=== PATIENT | female | born 1945 | race Caucasian/White ===

== ENCOUNTER 2018-04-03 01:54 | Inpatient (IN) | payer MEDICARE, OTHER ==
[2018-04-02 14:00] LABS: INR 0.93
[2018-04-03] VITALS (15 sets, daily range): BP systolic 93–175; BP diastolic 60–80
[~2018-04-03] VITALS: Ht 152.4 cm; Wt 68.9 kg
[~2018-04-03 01:54] MED LIST: ALBU8.5H IH; ASPI-757 PO; CELE-1 PO; FLUT10SP; HYDR-318 PO; LEVO50TA86 PO; LORTAB PO; METO25TA93 PO; METO50TA19 PO; MONT10TA4 PO; OXYC-823 PO; RIV10 PO
--- NOTE | 2018-04-03 07:07 | LEVENE H&P ---
DATE OF ADMISSION: April 03, 2018 IDENTIFICATION/CHIEF COMPLAINT The patient is a 72-year-old woman with a chief complaint of right knee pain. HISTORY OF PRESENT ILLNESS The patient has a longstanding history of knee arthritis, progressively painful and debilitating, refractory to conservative care. Surgery is indicated to relieve pain after failure of nonoperative measures. PAST MEDICAL HISTORY 1. Known for hypertension controlled on medications. 2. Hypothyroidism. 3. Reactive airway disease which is rarely active. PAST SURGICAL HISTORY 1. Multiple knee operations. 2. Contralateral knee replacement. 3. Eye surgery. 4. Hip replacement. ALLERGIES NEOSPORIN CURRENT MEDICATIONS 1. Levothyroxine 50 mcg p.o. q day. 2. Metoprolol 50 mg p.o. q day. 3. Montelukast 10 mg p.o. q day. 4. ProAir inhaler p.r.n. 5. Fluticasone once per day each nostril. FAMILY HISTORY Non-contributory. SOCIAL HISTORY Notable for smoking a pack a day for 35 years, quitting in the year 1999. She drinks alcohol about one alcoholic beverage per week socially. She denies abuse. REVIEW OF SYSTEMS Negative. PHYSICAL EXAMINATION GENERAL: This is healthy female. HEENT: Normocephalic, atraumatic. Extraocular muscles intact. NECK: Supple, non-tender. LUNGS: Clear to auscultation bilaterally. HEART: Regular rate and rhythm. ABDOMEN: Benign. BACK: Non-tender without deformity. ORTHOPEDIC EXAMINATION The right knee has an effusion present and crepitus is noted. Extensor function is intact. Motion is relatively supple. Knee is grossly stable. Calf nontender. Neurovascular function intact. RADIOGRAPHS Reviewed demonstrating endstage knee arthritis. ASSESSMENT Right knee endstage degenerative joint disease, progressively painful and debilitating, refractory to conservative care. PLAN Per patient request we are going to proceed with right total knee arthroplasty. The nature of the procedure, the risks, benefits, the anticipated rehabilitative course were reviewed. Risks include but are not limited to , major medical or anesthetic complication, infection, neurovascular injury, stiffness, scarring, implant loosening, migration or failure, blood transfusion, re-tear, progressive arthritis, persistent or recurrent pain or symptoms, need for additional surgery and other unforeseen. She understands and wishes to proceed. A signed permit is placed in the chart. No guarantees are given or implied. [facility]
[2018-04-03] MEDS ORDERED: ONDANSETRON 4 MG/2 ML VIAL ONE (08:00)
[2018-04-03] MEDS ORDERED: PROPOFOL EMUL(*) 10MG/ML 20 ML 20 ML ONE (08:00)
[2018-04-03] MEDS ORDERED: DEXAMETHASONE SOD 4 MG/ML VIAL ONE (08:00)
[2018-04-03] MEDS ORDERED: LIDOCAINE MPF 1% 5 ML VIAL ONE (08:00)
[2018-04-03] MEDS ORDERED: METOCLOPRAMIDE 10 MG/2 ML SDV ONE (08:00)
[2018-04-03] MEDS ORDERED: fentaNYL CITR 100 MCG/2 ML AMP ONE (08:00)
[2018-04-03] MEDS ORDERED: NORMOSOL R SOLN(*) 1000 ML BAG 1,000 ML IV PRN ×2 (08:45→12:00)
[2018-04-03] MEDS ORDERED: ceFAZolin(*) 1 GM VIAL 1 GM in NS(*) 0.9% 100 ML ADDVANT BAG 100 ML IVPB ONE (08:45)
[2018-04-03] MEDS ORDERED: ACETAMINOPHEN 500 MG TAB PO ONE (08:45)
[2018-04-03] MEDS ORDERED: LIDOCAINE/SOD BICARB 8.4% SYR ID ONE (08:45)
[2018-04-03] MEDS ORDERED: cloNIDine EPIDUR INJ 100MCG/ML 40 MCG, ROPIVACAINE 0.5% 20 ML VIAL 25 ML, EPINEPHrine H... INJ ONE (08:45)
[2018-04-03] MEDS ORDERED: CELECOXIB 200 MG CAP PO ONE (08:45)
[2018-04-03] MEDS ORDERED: FAMOTIDINE 20 MG TAB PO ONE (08:45)
[2018-04-03] MEDS ORDERED: MIDAZOLAM 2 MG/2 ML VIAL IVP PRN (08:45)
[2018-04-03] MEDS ORDERED: PREGABALIN 75 MG CAPSULE PO ONE (08:45)
[2018-04-03] MEDS ORDERED: TRANEXAMIC AC 1000 MG/10ML SDV 1,000 MG in DEXTROSE 5% 50 ML BAG 50 ML IV ONE (08:45)
[2018-04-03] MEDS ORDERED: BENZOCAINE/MENTHOL 1 EACH LOZG PO PRN (12:00)
[2018-04-03] MEDS ORDERED: diphenhydrAMINE 25 MG CAP PO PRN (12:00)
[2018-04-03] MEDS ORDERED: ACETAMINOPHEN 325 MG TAB PO PRN (12:00)
[2018-04-03] MEDS ORDERED: PROMETHAZINE 25 MG/ML 1 ML AMP IVP PRN (12:00)
[2018-04-03] MEDS ORDERED: MAGNESIUM HYDROXIDE* 30ML UDCP PO PRN (12:00)
[2018-04-03] MEDS ORDERED: diphenhydrAMINE 50 MG/ML VIAL IVP PRN (12:00)
[2018-04-03] MEDS ORDERED: FLUSH 10 ML SYR IVP PRN (12:00)
[2018-04-03] MEDS ORDERED: DIAZEPAM 5 MG TAB PO PRN (12:00)
[2018-04-03] MEDS ORDERED: BISACODYL 10 MG SUPP PR PRN (12:00)
[2018-04-03] MEDS ORDERED: ZOLPIDEM TARTRATE 5 MG TAB PO PRN (12:00)
[2018-04-03] MEDS: APAP/HYDROCODONE 325/7.5 TAB PO PRN ×3 (13:53→19:26)
--- NOTE | 2018-04-03 13:56 | RADIOLOGY IMAGING REPORT ---
FACILITY: [facility] PATIENT NAME: Juliana Cisneros : 1945 MR: [id number] V: [id number] EXAM DATE: ORDERING PHYSICIAN: SON SANDS TECHNOLOGIST: Location: [facility] Patient: Juliana Cisneros : 1945 Visit/Account:[id number] Date of Sevice: 04/03/2018 Exam type: KNEE LIMITED RIGHT History: S/P R TKA Comparison: None. Findings: AP and crosstable lateral views the right knee demonstrate a right knee arthroplasty in good anatomic alignment. Soft tissue gas and skin rochelle project over the anterior aspect of this postoperative knee IMPRESSION: 1. Right knee arthroplasty appears in good anatomic alignment Report Dictated By: Velia Stinson MD at 04/03/2018 1:48 PM Report E-Signed By: Velia Stinson MD at 04/03/2018 1:52 PM WSN:[email or web address]
[2018-04-03] MEDS ORDERED: FLUTICASONE PROP 0.05% 16 GM PRN (14:15)
[2018-04-03] MEDS ORDERED: ALBUTEROL 8 GM INHALER INH PRN (14:15)
--- NOTE | 2018-04-03 14:17 | Hospitalist Consultation ---
History of Present Illness Requesting Physician Dr. Almonte Reason for Consult Medical Management Chief Complaint s/p right total knee replacement History of Present Illness She was admitted s/p right total knee replacement. It is reported the surgery went well and without complication. History Problems: (1) HTN (hypertension) Status: Chronic (2) Asthma Status: Chronic (3) Hypothyroidism Status: Chronic Home Meds Reported Medications Levothyroxine Sodium (LEVOTHYROXINE SODIUM) 50 Mcg Tablet, 50 MCG PO HS, TAB 09/13/16 Metoprolol Succinate (METOPROLOL SUCCINATE) 50 Mg Tab.er.24h, 1 TAB PO HS, TAB 09/13/16 Montelukast Sodium (MONTELUKAST SODIUM) 10 Mg Tablet, 1 TAB PO HS TAKE ONE TABLET BY MOUTH AT LEAST TWO HOURS PIOR TO EXERCISE 09/19/13 Albuterol Sulfate 90 Mcg/Act (PROAIR HFA 90 MCG/ACT) 8.5 Gm Hfa.aer.ad, 1-2 PUFF IH PRN 09/19/13 Fluticasone Furoate (VERAMYST) 10 Gm [place], 1 SPRAY NA QDAY PRN for CONGESTION, SPRAY 09/19/13 Discontinued Reported Medications Hydrocodone/Acetaminophen (Lortab 7.5-325 mg Tablet) 1 Each Tablet, 1-2 TAB PO Q4-6H PRN for PAIN, #80 09/22/16 Celecoxib (CELEBREX) 200 Mg Capsule, 200 MG PO BIDBS, #60 CAPSULE 09/22/16 Discontinued Scripts Aspirin (ASPIRIN) 325 Mg Tablet, 325 MG PO DAILY PRN for vte for 30 Days, TAB 0 Refills Prov:DANIELLE ALBERT MD FACP 09/22/16 Allergies: Coded Allergies: pneumococcal vaccine (Verified Allergy, Mild, increase in blood pressure, fever, chills, 09/13/16) bacitracin (Verified Allergy, Unknown, rash, swelling, 09/13/16) neomycin (Verified Allergy, Unknown, rash, swelling, 09/13/16) polymyxin B (Verified Allergy, Unknown, rash, swelling, 09/13/16) Patient History: FH: emphysema FATHER, FH: lung cancer MOTHER, Hx Smoking: Yes (1 PPD X 40 YRS. QUIT 1999) Smoking Status: Former Smoker Caffeine Intake: Coffee, Tea, Soda Caffeine/Cups Per Day: 2-4 Hx Alcohol Use: Yes Hx Substance Use Disorder: No Social Drug Use: Never Review of Systems All Systems Reviewed/Normal: Yes, Except as Noted Exam Vital Signs Vital Signs Date Time Temp Pulse Resp B/P (MAP) Pulse Ox O2 Delivery O2 Flow Rate FiO2 04/03/18 13:45 96.1 62 139/67 (91) 94 Nasal Cannula 2.0 04/03/18 13:00 20 General Appearance: Alert, Awake, No Acute Distress, Afebrile Neuro: No Gross deficits Cardiovascular: Regular Rate and Rhythm Respiratory: No Respiratory Distress, Clear to Auscultation Psych: Alert & Oriented X3, Appropriate Mood & Affect Assessment and Plan Problems: (1) Status post total right knee replacement Status: Acute Assessment & Plan: Followed by Dr. Almonte. She will be placed on Aspirin for VTE prophylaxis. She has no history of DVT or PE. (2) HTN (hypertension) Status: Chronic Assessment & Plan: She is on chronic treatment with Metoprolol. This has been restarted with hold parameters. (3) Hypothyroidism Status: Chronic Assessment & Plan: She is on chronic treatment with Levothyroxine. (4) Asthma Status: Chronic Assessment & Plan: She does use 1.5 L at night. Venous Thromboembolism Antithrombotics Is Pt On Any Antithrombotics?: No Exam Sepsis Risk: No Definite Risk Problem Qualifiers (1) HTN (hypertension): Hypertension type: essential hypertension Qualified Codes: I10 - Essential (primary) hypertension OLAMIDE THURMANP Apr 03, 2018 14:17
--- NOTE | 2018-04-03 16:15 | OPERATIVE REPORT 1 ---
EVENT DATE: April 03, 2018 SURGEON: Yohan Almonte MD ANESTHESIOLOGIST: Melecio Barajas MD ANESTHESIA: General plus spinal. MACHINE REPAIR PERSON: SUZY Looney PREOPERATIVE DIAGNOSIS Right knee degenerative joint disease. POSTOPERATIVE DIAGNOSIS Right knee degenerative joint disease. PROCEDURE PERFORMED Right total knee arthroplasty. ESTIMATED BLOOD LOSS Minimal. DRAINS None. SPECIMENS None. COMPLICATIONS None apparent. TOURNIQUET TIME 39 minutes IMPLANTS USED [employer] Triathlon knee system, a 3 right PS femur, a 3 standard tibial baseplate, a 31 mm universal, cemented, all-polyethylene patellar button, and a 13 mm PS tibial tray liner. Polyethylene is X3. INDICATIONS Juliana is a 72-year-old woman with progressive pain and disability related to end-stage knee arthritis. Surgery is indicated to relieve symptoms after failure of nonoperative measures. DESCRIPTION OF PROCEDURE Patient was taken to the operating room and placed supine on the operating table. Spinal block was administered by the anesthesiologist. General anesthesia was induced. Antibiotics and TXA were administered IV. Right lower extremity was prepped and draped in the usual sterile fashion for knee arthroplasty. Limb was exsanguinated with an Esmarch bandage. Tourniquet inflated to 250 mmHg. Midline longitudinal incision made, carried down through the skin and subcutaneous tissue to the extensor mechanism. Full-thickness flaps were developed far enough medially to allow medial parapatellar arthrotomy be performed. Patella was everted. Knee was brought into the flexed position. Fat pad, anterior horns of the menisci, and the cruciate ligaments are debrided. A subperiosteal medial released is initiated in a titrated fashion to balance the knee. A step drill is used to enter the distal femur. A 10-inch long alignment guide is used to engage the isthmus, cut set for 6 degrees of valgus relative to the anatomic axis. The 10 mm resection block is applied, pinned, and cuts made with an oscillating saw. AP sizing guide is applied to the distal femoral cut, positioned for 3 degrees of external rotation relative to the posterior condyles. The size 3 is optimal without risk of notching. The four-in-one cutting block is applied. Anterior, posterior, posterior chamfer, and anterior chamfer cuts are made respectively. PS block is applied and centered. Medial and lateral bone is removed from the box. Trial femur has nice [id number] fit. Attention is turned to tibial preparation. The extramedullary guide is applied, positioned for varus, valgus, posterior slope, and rotation. This is set to take 9 mm from the relatively intact lateral tibial plateau. It is dropped down a couple millimeters to ensure an adequate cut. Block is pinned. Extramedullary alignment check is made. Cuts made with an oscillating saw. After osteophyte removal, gaps are balanced and symmetric with no additional releases required. Size 3 tibial baseplate provides optimum bony coverage of the tibia without soft tissue overhang. This is inserted along with the trial femur and the trial liner. Knee is brought to extension. Patella is taken from the starting thickness of 23 mm to a residual of 14 with a patellar clamp and oscillating saw. The 31 provides optimum bony coverage without soft tissue overhang. Lug holes are drilled. Patella tracks nicely with the no-touch technique. Final tibial preparation consists of assuring appropriate rotational and translational positioning of the component. The boss is reamed. Fin is punched. Surfaces are lavaged. All components cemented in a single stage. When the methacrylate is fully polymerized, tourniquet is deflated, and hemostasis assured. Wound is copiously lavaged. All loose debris is removed. The 13 PS tibial tray liner fills up the gap ideally, allowing the knee to drop to full extension without hyperextension, providing optimal soft tissue tension and stability. The tray is lavaged and dried, and the liner is locked into the baseplate. Joint is reduced. Arthrotomy is closed in flexion with #2 Ethibond, subcutaneous tissue with 3-0 Vicryl, skin with surgical rochelle, Xeroform and 4 x 4's as a dry, sterile dressing, and compression wrap. The patient awakened from anesthesia and taken to the recovery room in stable condition having tolerated the procedure well. PLAN Plan is for standard TKA rehab protocol. [facility]
[2018-04-03] MEDS: CELECOXIB 200 MG CAP PO SCH (17:33)
[2018-04-03] MEDS: ceFAZolin(*) 1 GM VIAL 1 GM in NS(*) 0.9% 100 ML ADDVANT BAG 100 ML IVPB SCH (17:33)
[2018-04-03] MEDS: METOPROLOL SUCC XL 50 MG TABCR 50 MG TAB.ER.24H PO SCH (21:00)
[2018-04-03] MEDS: MONTELUKAST SODIUM 10 MG TAB PO SCH (21:37)
[2018-04-03] MEDS: LEVOTHYROXINE SOD 0.05 MG TAB PO SCH (21:37)
[2018-04-04] VITALS (7 sets, daily range): BP systolic 119–160; BP diastolic 56–79; Ht 152.4 cm; Wt 68.9 kg
[2018-04-04] MEDS: APAP/HYDROCODONE 325/7.5 TAB PO PRN ×5 (01:18→21:21)
[2018-04-04] MEDS: ceFAZolin(*) 1 GM VIAL 1 GM in NS(*) 0.9% 100 ML ADDVANT BAG 100 ML IVPB SCH ×2 (01:24→09:57)
[2018-04-04] MEDS: ASPIRIN 325 MG TAB PO SCH (08:34)
[2018-04-04] MEDS: CELECOXIB 200 MG CAP PO SCH ×2 (08:34→17:21)
--- NOTE | 2018-04-04 09:23 | Hospitalist Progress Note ---
Subjective Progress Notes Subjective She has no complaints this morning. She had no acute events overnight. Patient Complains of: Cardiovascular: No: Chest Pain Respiratory: No: Shortness of Breath Physical Exam Vital Signs Date Time Temp Pulse Resp B/P (MAP) Pulse Ox O2 Delivery O2 Flow Rate FiO2 04/04/18 07:45 97 Nasal Cannula 2.0 04/04/18 07:41 97.8 62 18 138/76 (96) Intake and Output 04/04/18 06:59 Intake Total 3717 ml Balance 3717 ml Intake Oral 1610 ml IV Total 2107 ml # Voids 3 General Appearance: Alert, Awake, No Acute Distress, Afebrile Neuro: No Gross deficits Cardiovascular: Regular Rate and Rhythm Respiratory: No Respiratory Distress, Clear to Auscultation Psych: Alert & Oriented X3, Appropriate Mood & Affect Assessment and Plan Problems: (1) Status post total right knee replacement Status: Acute Assessment & Plan: Followed by Dr. Almonte. She will be placed on Aspirin for VTE prophylaxis. She has no history of DVT or PE. (2) HTN (hypertension) Status: Chronic Assessment & Plan: She is on chronic treatment with Metoprolol. This has been restarted with hold parameters. (3) Hypothyroidism Status: Chronic Assessment & Plan: She is on chronic treatment with Levothyroxine. (4) Asthma Status: Chronic Assessment & Plan: She does use 1.5 L at night. Exam Sepsis Risk: No Definite Risk Problem Qualifiers (1) HTN (hypertension): Hypertension type: essential hypertension Qualified Codes: I10 - Essential (primary) hypertension OLAMIDE THURMAN Apr 04, 2018 09:23
[2018-04-04] MEDS ORDERED: KETOROLAC 15 MG/ML VIAL IVP ONE (14:40)
[2018-04-04] MEDS: MONTELUKAST SODIUM 10 MG TAB PO SCH (21:20)
[2018-04-04] MEDS: LEVOTHYROXINE SOD 0.05 MG TAB PO SCH (21:20)
[2018-04-04] MEDS: METOPROLOL SUCC XL 50 MG TABCR 50 MG TAB.ER.24H PO SCH (21:20)
[2018-04-05] VITALS (7 sets, daily range): BP systolic 104–150; BP diastolic 51–91
[2018-04-05] MEDS: APAP/HYDROCODONE 325/7.5 TAB PO PRN ×5 (01:24→20:38)
[2018-04-05] MEDS ORDERED: HYDR-4308 PO (07:38)
[2018-04-05] MEDS: CELECOXIB 200 MG CAP PO SCH ×2 (08:18→17:09)
[2018-04-05] MEDS: ASPIRIN 325 MG TAB PO SCH (08:18)
--- NOTE | 2018-04-05 09:59 | Hospitalist Progress Note ---
Subjective Progress Notes Subjective She has complaints of being tired this morning. She had no acute events overnight. Patient Complains of: Cardiovascular: No: Chest Pain Respiratory: No: Shortness of Breath Physical Exam Vital Signs Date Time Temp Pulse Resp B/P (MAP) Pulse Ox O2 Delivery O2 Flow Rate FiO2 04/05/18 07:09 92 Nasal Cannula 2.0 04/05/18 07:06 97.8 54 16 113/54 (73) Intake and Output 04/05/18 07:00 Intake Total 2176 ml Balance 2176 ml Intake Oral 2060 ml IV Total 116 ml # Voids 6 General Appearance: Alert, Awake, No Acute Distress, Afebrile Neuro: No Gross deficits Cardiovascular: Regular Rate and Rhythm Respiratory: No Respiratory Distress, Clear to Auscultation Psych: Alert & Oriented X3, Appropriate Mood & Affect Assessment and Plan Problems: (1) Status post total right knee replacement Status: Acute Assessment & Plan: Followed by Dr. Almonte. She will be placed on Aspirin for VTE prophylaxis. She has no history of DVT or PE. (2) HTN (hypertension) Status: Chronic Assessment & Plan: She is on chronic treatment with Metoprolol. This has been restarted with hold parameters. (3) Hypothyroidism Status: Chronic Assessment & Plan: She is on chronic treatment with Levothyroxine. (4) Asthma Status: Chronic Assessment & Plan: She does use 1.5 L at night. Exam Sepsis Risk: No Definite Risk Problem Qualifiers (1) HTN (hypertension): Hypertension type: essential hypertension Qualified Codes: I10 - Essential (primary) hypertension OLAMIDE THURMAN ACID PURIFIER Apr 05, 2018 09:59
[2018-04-05] MEDS: METOPROLOL SUCC XL 50 MG TABCR 50 MG TAB.ER.24H PO SCH (20:37)
[2018-04-05] MEDS: MONTELUKAST SODIUM 10 MG TAB PO SCH (20:37)
[2018-04-05] MEDS: LEVOTHYROXINE SOD 0.05 MG TAB PO SCH (20:38)
[2018-04-06 03:31] VITALS: BP 101/58
[2018-04-06] MEDS: APAP/HYDROCODONE 325/7.5 TAB PO PRN ×2 (03:45→09:25)
[2018-04-06] MEDS ORDERED: ASPI-757 PO (07:41)
[2018-04-06 07:51] VITALS: BP 132/63
[2018-04-06] MEDS: ASPIRIN 325 MG TAB PO SCH (08:16)
[2018-04-06] MEDS: CELECOXIB 200 MG CAP PO SCH (08:16)
--- NOTE | 2018-04-06 09:03 | Hospitalist Progress Note ---
Subjective Progress Notes Subjective She has no complaints this morning. She had no acute events overnight. Patient Complains of: Cardiovascular: No: Chest Pain Respiratory: No: Shortness of Breath Physical Exam Vital Signs Date Time Temp Pulse Resp B/P (MAP) Pulse Ox O2 Delivery O2 Flow Rate FiO2 04/06/18 08:09 82 04/06/18 07:51 98.5 62 16 132/63 (86) Nasal Cannula 2.0 Intake and Output 04/06/18 07:00 Intake Total 1880 ml Balance 1880 ml Intake Oral 1880 ml # Voids 4 General Appearance: Alert, Awake, No Acute Distress, Afebrile Neuro: No Gross deficits Cardiovascular: Regular Rate and Rhythm Respiratory: No Respiratory Distress, Clear to Auscultation GI: Soft and Non-Tender Psych: Alert & Oriented X3, Appropriate Mood & Affect Assessment and Plan Problems: (1) Status post total right knee replacement Status: Acute Assessment & Plan: Followed by Dr. Almonte. She will be placed on Aspirin for VTE prophylaxis. She has no history of DVT or PE. (2) HTN (hypertension) Status: Chronic Assessment & Plan: She is on chronic treatment with Metoprolol. This has been restarted with hold parameters. (3) Hypothyroidism Status: Chronic Assessment & Plan: She is on chronic treatment with Levothyroxine. (4) Asthma Status: Chronic Assessment & Plan: She does use 2L at night. She will require 2L, 24 hour continuous oxygen at all times. She will follow up with PCP next week regarding oxygen use. Exam Sepsis Risk: No Definite Risk Problem Qualifiers (1) HTN (hypertension): Hypertension type: essential hypertension Qualified Codes: I10 - Essential (primary) hypertension OLAMIDE THURMAN ESTATE MANAGER Apr 06, 2018 09:03
== END 2018-04-06 10:58 | disposition home or self-care (01) | DRG 470 ==
LOC: OR 01:54 → MED 12:55
PROVIDERS: ADMIT Orthopaedic Surgery; ATTEND Orthopaedic Surgery
PROC: 0SRC0J9 Replacement of Right Knee Joint with Synthetic Substitute, Cemented, Open Approach (ICD-10-PCS; principal; 2018-04-03 09:56)
DX: M17.11 Unilateral primary osteoarthritis, right knee (principal); I10 Essential (primary) hypertension; Z96.652 Presence of left artificial knee joint; Z96.642 Presence of left artificial hip joint; Z87.891 Personal history of nicotine dependence; E03.9 Hypothyroidism, unspecified; J45.909 Unspecified asthma, uncomplicated; Z88.8 Allergy status to other drugs, medicaments and biological substances; Z88.1 Allergy status to other antibiotic agents; Z88.7 Allergy status to serum and vaccine
CPT/HCPCS: 36415; 85610; 86850; 86900; 86901; 97161; C1713; C1776; J0171; J0690; J0735; J1100; J1885; J2001; J2250; J2405; J2704; J2765; J2795; J3010; J3535; J7050; J7060